=== PATIENT | male | born 1985 | race Caucasian/White ===

== ENCOUNTER 2023-08-14 16:49 | Emergency (ER) | payer BC, SELFPAY ==
[2023-08-14] VITALS (16 sets, daily range): BP systolic 141–149; BP diastolic 87–103; PULSE 66–85; RESP 14–25; TEMP 36.8; O2SAT 96–98; BMI 28.1
--- NOTE | 2023-08-14 18:00 | XR_ITS ---
The [address] [address] Patient Name: BUTCH BRICEÑO MRN: [id number] date: 1985 Sex: M Assigned Patient Location: ER Current Patient Location: ED.MAIN Accession/Order Number: [id number] Exam Date: 08/14/2023 18:20 Report Date: 08/14/2023 19:09 At the request of: PURA CROCKETT Procedure: XR chest 1V EXAMINATION: XR chest 1V 08/14/2023 4:08 PM PST HISTORY: CP TECHNIQUE: Single frontal view of the chest acquired. COMPARISONS: Chest x-ray 12/19/2022. FINDINGS: Lines/tubes/other: None. Heart and mediastinum: The heart and the mediastinum are within normal limits for technique. Bones: No acute osseous abnormality. Lungs: The lungs are clear. There is no evidence of pneumonia or pulmonary edema. Pleura: There is no significant pleural effusion or pneumothorax. Other: None. XR/XR chest 1V IMPRESSION: No acute cardiopulmonary abnormality. Electronically authenticated by: KYE CASIANO Date: 08/14/2023 19:09
--- NOTE | 2023-08-14 18:00 | ECG_ITS ---
The [facility] Test Date: 2023-08-14 Pat Name: BUTCH BRICEÑO Department: Room: - Gender: Male Psychiatric Technician: : 1985 Requested By: JAM FRAIRE Order Number: [id number] Reading MD: JAM FRAIRE Measurements Intervals [place] Rate: 73 P: 68 NV: 182 QRS: 63 QRSD: 84 T: 61 QT: 358 QTc: 383 Interpretive Statements 1100 Sinus rhythm 9110 normal ECG No previous ECG available for comparison Electronically Signed On 08-15-2023 4:58:58 EST by JAM FRAIRE
--- NOTE | 2023-08-14 18:02 | ED.CHESTPAI1 ---
HPI - Chest Pain General Chief Complaint: Chest Pain Stated Complaint: CP Time Seen by Provider: 08/14/23 17:18 Source: patient Mode of arrival: walk-in Limitations: no limitations History of Present Illness HPI narrative: 37-year-old male presents for a one year history of chest pain. He's had this worked up and has had a stress test that was negative. He is worried about pleurisy. He has it every day now for about three weeks and there is been no injury or fever or cough. This did not follow any respiratory infections. It's just to the left of midline in the lower sternal region. Related Data Previous Rx's Medication Instructions Recorded esomeprazole magnesium 40 mg 40 mg PO DAILY 28 days #28 caps 08/14/23 capsule,delayed release (Nexium) Allergies Allergy/AdvReac Type Severity Reaction Status Date / Time Penicillins Allergy Hives Verified 08/14/23 16:58 Review of Systems ROS Narrative A ten point review of systems is negative except as noted above. Exam Narrative Exam Narrative: Nurses note and vital signs reviewed and patient is not hypoxic. General: The patient appears well and in no apparent distress. Patient is resting comfortably on cart. Skin: Warm, dry, no pallor noted. There is no rash noted. Head: Normocephalic, atraumatic Eye: Normal conjunctiva, no drainage Ears, Nose, Mouth, and Throat: oral mucosa is moist. Nares patent. Cardiovascular: Regular Rate and Rhythm Respiratory: Patient is in no distress, no accessory muscle use, lungs are clear to auscultation, no wheezing, rales or rhonchi Back: non-tender GI: soft and nontender. No tenderness in the epigastric area. Musculoskeletal: The patient has no evidence of calf tenderness, no pitting edema, symmetrical pulses noted bilaterally Neurological: A&O, normal speech Psychiatric: Cooperative Constitutional Vital Signs, click to edit/add: Last Vital Signs Temp 98.3 F 08/14/23 16:58 Pulse 75 08/14/23 18:30 Resp 25 H 08/14/23 18:30 BP 149/87 H 08/14/23 16:58 Pulse Ox 96 08/14/23 17:00 O2 Del Method Room Air 08/14/23 16:58 Course Vital Signs Vital signs: Vital Signs Blood Pressure 149/87 H 08/14/23 16:57 Pulse Oximetry 97 12/18/23 16:57 Temperature 98.3 F 08/14/23 16:58 Pulse Rate 75 08/14/23 18:30 Respiratory Rate 25 H 08/14/23 18:30 Blood Pressure 149/87 H 08/14/23 16:58 Pulse Oximetry 96 08/14/23 17:00 Oxygen Delivery Method Room Air 08/14/23 16:58 MDM - Chest Pain MDM Narrative Medical decision making narrative: workup is negative. I've no clinical suspicion of acute coronary syndrome. I suspect that this may be GERD and he'll be prescribed Nexium. She's had this symptom for about a year. Treatment diagnosis and follow-up were discussed with the patient. Differential Diagnosis Differential diagnosis: Likely pneumothorax, atypical chest pain, costochondritis and chest pain Lab Data Attestation: I reviewed the patient's lab results. Labs: Lab Results 08/14/23 Range/Units 18:10 WBC 5.2 (4.0-11.0) 10^3/uL RBC 4.11 L (4.70-6.10) 10^6/uL Hgb 13.1 L (14.0-18.0) g/dL Hct 39.1 L (42.0-54.0) % MCV 95.1 H (80.0-94.0) fL MCH 31.9 (25.9-34.0) pg MCHC 33.5 (29.9-35.2) g/dL RDW 12.1 (11.0-15.0) % Plt Count 274 (150-450) 10^3/uL MPV 9.6 (9.5-13.5) fL Neut % (Auto) 50.0 (43.0-75.0) % Lymph % (Auto) 37.3 (20.5-60.0) % [place] % (Auto) 9.8 (1.7-12.0) % Eos % (Auto) 1.9 (0.9-7.0) % Baso % (Auto) 0.8 (0.2-2.0) % Neut # (Auto) 2.6 (1.4-6.5) 10^3/uL Lymph # (Auto) 1.9 (1.2-3.8) 10^3/uL [place] # (Auto) 0.5 (0.3-0.8) 10^3/uL Eos # (Auto) 0.1 (0.0-0.7) 10^3/uL Baso # (Auto) 0.0 (0.0-0.1) 10^3/uL Abs Immat Gran (auto) 0.01 (0.00-0.03) 10^3/uL Imm/Tot Granulo (auto) 0.2 (0.0-0.5) % Sodium 139 (136-145) mmol/L Potassium 4.0 (3.5-5.1) mmol/L Chloride 103 (98-107) mmol/L Carbon Dioxide 26.9 (21.0-32.0) mmol/L Anion Gap 13.1 BUN 19.0 H (7.0-18.0) mg/dL Creatinine 0.95 (0.70-1.30) mg/dL Est GFR ( Amer) >60 (>=60) Est GFR (Non-Af Amer) >60 (>=60) BUN/Creatinine Ratio 20.0 Glucose 117 H (74-106) mg/dL Calcium 9.4 (8.5-10.1) mg/dL Imaging Data Chest x-ray: My impression: chest x-ray my interpretation shows no acute findings ECG Data Attestation: I personally reviewed and interpreted this ECG as follows: (EKG on my dictation shows normal sinus rhythm with no acute changes and a rate of 73.) Discharge Plan Discharge Chief Complaint: Chest Pain Clinical Impression: Atypical chest pain Patient Disposition: Home, Self-Care Time of Disposition Decision: 18:46 Condition: Good Mode of Transportation: Private Vehicle Prescriptions / Home Meds: New esomeprazole magnesium [Nexium] 40 mg capsule,delayed release(DR/EC) 40 mg PO DAILY 28 Days Qty: 28 0RF Instructions: Chest Pain (DC) Stand Alone Forms: Portal Instructions Referrals: Sigifredo Flores MD [Primary Care Provider] - 1 week
[2023-08-14 18:14] LABS: Basophils Percent Auto 0.8 % (0.2-2.0); Eosinophils Absolute Auto 0.1 10^3/uL (0.0-0.7); Eosinophils Percent Auto 1.9 % (0.9-7.0); Hematocrit 39.1 % (42.0-54.0); Hemoglobin 13.1 g/dL (14.0-18.0); Immature Granulocytes Abs Auto 0.01 10^3/uL (0.00-0.03); Immature Granulocytes Pct Auto 0.2 % (0.0-0.5); Lymphocytes Absolute Auto 1.9 10^3/uL (1.2-3.8); Lymphocytes Percent Auto 37.3 % (20.5-60.0); Mean Corpuscular HGB Conc 33.5 g/dL (29.9-35.2); Mean Corpuscular Hemoglobin 31.9 pg (25.9-34.0); Mean Corpuscular Volume 95.1 fL (80.0-94.0); Mean Platelet Volume 9.6 fL (9.5-13.5); Monocytes Absolute Auto 0.5 10^3/uL (0.3-0.8); Monocytes Percent Auto 9.8 % (1.7-12.0); Neutrophils Absolute Auto 2.6 10^3/uL (1.4-6.5); Platelet Count 274 10^3/uL (150-450); Red Blood Count 4.11 10^6/uL (4.70-6.10); Red Cell Distribution Width 12.1 % (11.0-15.0); White Blood Count 5.2 10^3/uL (4.0-11.0)
[2023-08-14 18:23] LABS: Anion Gap 13.1; Calcium 9.4 mg/dL (8.5-10.1); Carbon Dioxide 26.9 mmol/L (21.0-32.0); Chloride 103 mmol/L (98-107); Estimated GFR (African America >60 (>=60); Estimated GFR (Non-African Ame >60 (>=60); Glucose 117 mg/dL (74-106); Sodium 139 mmol/L (136-145)
== END 2023-08-14 19:23 | disposition home or self-care (01) ==
PROVIDERS: Emergency Provider Emergency Medicine; PCP Family Medicine
DX: R07.89 Other chest pain (principal)
CPT/HCPCS: 36415; 71045; 80048; 85025; 93005; 99285

== ENCOUNTER 2023-09-21 09:29 | Outpatient (OUT) | payer BC, SELFPAY ==
--- NOTE | 2023-09-21 09:33 | US_ITS ---
The [address] [address] Patient Name: BUTCH BRICEÑO MRN: [id number] date: 1985 Sex: M Assigned Patient Location: US Current Patient Location: US Accession/Order Number: [id number] Exam Date: 09/21/2023 09:40 Report Date: 09/21/2023 10:21 At the request of: JAM FRAIRE Procedure: US soft tissue head and neck EXAM: US soft tissue head and neck HISTORY: Lymphadenitis I88.9 COMPARISON: None. TECHNIQUE: Grayscale and color ultrasound FINDINGS: Identified in the midline submandibular region is a mildly enlarged lymph node measuring 1.4 x 1.3 x 1.0 cm. This lymph node demonstrates atypical morphology with a thickened cortex and loss of fatty hilum. Identified in the right lateral neck corresponding to the patient's long is a focal lymph node measuring 1.2 x 1.0 x 0.8 cm. Abnormal morphology with thickened cortex and loss of fatty hilum Identified in the mid lateral right neck is a focal lymph node measuring 2.2 x 1.3 x 0.7 cm. Normal morphology with a cortex measuring up to 3 mm and fatty hypervascular hilum US/US soft tissue head and neck IMPRESSION: 3 focal lymph nodes, 2 lymph nodes demonstrate abnormal morphology, nonspecific of unknown etiology Electronically authenticated by: GARTH EVANS Date: 09/21/2023 10:21
--- OUTSIDE RECORDS SUMMARY | 2023-09-21 09:33 | XMS_ITS | CCD ---
Author Name Unknown Address [address] [place] [id number] Organization [facility] Care Team Providers Care Assembly Department Supervisor Name Role Phone DR JAM JOSHI Primary Care Unavailable PURA CROCKETT Admitting Unavailable PURA CROCKETT Attending Unavailable MARY KATE, DR NEGRITO Carrero Consulting Unavailable PURA CROCKETT Consulting Unavailable HOY ., DR POLK Admitting Unavailable HOY ., DR POLK Attending Unavailable HOY ., DR POLK Consulting Unavailable NEWCLAUDINE, JOSE C Consulting Unavailable YEE ., DR POLK Admitting Unavailable YEE ., DR POLK Attending Unavailable HOY ., DR POLK Consulting Unavailable MARY KATE, DR NEGRITO Carrero Consulting Unavailable Allergies Allergy Classification Reported Allergen(s) Allergy Type Date of Onset Reaction(s) Facility (1 source) Penicillins Drug allergy (disorder) 09-03-2015 [facility] Problems Problem Classification Problem Date Documented Da te Episodic/Chronic Nonspecific chest pain (7 sources) Chest pain, unspecified; Translations: [Other chest pain] Onset: 12-01-2022 Episodic Other aftercare (1 source) Other usp (current) drug therapy; Translations: [[employer] WORK[employer] CURRENT DRUG THERAPY] Onset: 12-20-2022 Episodic Results Test Name Value Interpretation Reference Range Facil ity CBC AUTO DIFFon 12-19-2022 BASO # 0.0 103/ul Normal 0.0-0.1 [facility] Comment on above: Performed By: #### C BC #### [facility] [address] [address] [address] Chery Cagle Basophils/100 WBC (Bld) 0.6 % Normal 0.2-2.0 [facility] Comment on above: Performed By: #### C BC #### [facility] [address] [address] [address] Chery Cagle EO # 0.1 103/ul Normal 0.0-0.7 [facility] Comment on above: Performed By: #### C BC #### [facility] [address] [place] [address] Dr. Chery Cagle Eosinophils/100 WBC (Bld) 1.3 % Normal 0.9-7.0 [facility] Comment on above: Performed By: #### C BC #### [facility] [address] [place] [address] Dr. Chery Cagle Erythrocyte distribution width (RBC) [Ratio] 12.4 % Normal 11.0-15.0 [facility] Comment on above: Performed By: #### C BC #### [facility] [address] [place] [address] Dr. Chery Cagle Hematocrit (Bld) [Volume fraction] 43.9 % Normal 42.0-54.0 [facility] Comment on above: Performed By: #### C BC #### [facility] [address] [place] [address] Dr. Chery Cagle Hemoglobin (Bld) [Mass/Vol] 15.3 g/dL Normal 14.0-18.0 [facility] Comment on above: Performed By: #### C BC #### [facility] [address] [place] [address] Dr. Chery Cagle IG # 0.02 10e3/ul Normal 0.00-0.03 [facility] Comment on above: Performed By: #### C BC #### [facility] [address] [place] [address] Dr. Chery Cagle IG % 0.3 % Normal 0.0-0.5 [facility] Comment on above: Performed By: #### C BC #### [facility] [address] [place] [address] Dr. Chery Cagle LYMPH # 1.9 103/ul Normal 1.2-3.8 [facility] Comment on above: Performed By: #### C BC #### [facility] [address] [place] [address] Dr. Chery Cagle Lymphocytes/100 WBC (Bld) 28.3 % Normal 20.5-60.0 [facility] Comment on above: Performed By: #### C BC #### [facility] [address] [place] [address] Dr. Chery Cagle MANUAL DIFF REQ NO Normal [facility] Comment on above: Performed By: #### C BC #### [facility] [address] [place] [address] Dr. Chery Calge MCH (RBC) [Entitic mass] 32.3 pg Normal 25.9-34.0 [facility] Comment on above: Performed By: #### C BC #### [facility] [address] [place] [address] Dr. Chery Cagle MCHC (RBC) [Mass/Vol] 34.9 g/dL Normal 29.9-35.2 [facility] Comment on above: Performed By: #### C BC #### [facility] [address] [place] [address] Dr. Chery Cagle MCV (RBC) [Entitic vol] 92.8 fL Normal 80.0-94.0 [facility] Comment on above: Performed By: #### C BC #### [facility] [address] [place] [address] Dr. Chery Cagle MONO # 0.5 103/ul Normal 0.3-0.8 [facility] Comment on above: Performed By: #### C BC #### [facility] [address] [place] [address] Dr. Chery Cagle Monocytes/100 WBC (Bld) 7.0 % Normal 1.7-12.0 [facility] Comment on above: Performed By: #### C BC #### [facility] [address] [place] [address] Dr. Chery Cagle NEUT # 4.2 103/ul Normal 1.4-6.5 [facility] Comment on above: Performed By: #### C BC #### [facility] [address] [place] [address] Dr. Chery Cagle Neutrophils/100 WBC (Bld) 62.5 % Normal 43.0-75.0 [facility] Comment on above: Performed By: #### C BC #### [facility] [address] [place] [address] Dr. Chery Cagle Platelet mean volume (Bld) [Entitic vol] 9.7 fL Normal 9.5-13.5 [facility] Comment on above: Performed By: #### C BC #### [facility] [address] [place] [address] Dr. Chery Cagle PLT 277 103/ul Normal 150-450 [facility] Comment on above: Performed By: #### C BC #### [facility] [address] [place] [address] Dr. Chery Cagle RBC 4.73 106/ul Normal 4.70-6.10 [facility] Comment on above: Performed By: #### C BC #### [facility] [address] [place] [address] Dr. Chery Cagle WBC 6.7 103/ul Normal 4.0-11.0 [facility] Comment on above: Performed By: #### C BC #### [facility] [address] [place] [address] Dr. Chery Cagle PROF CHEM 8 (BAS METB)on Anion gap [Moles/Vol] 12.2 mmol/L Normal [facility] Comment on above: Performed By: #### B KARTHIKEYAN, HSTROPN #### [facility] [address] [place] [address] Dr. Chery Cagle Calcium [Mass/Vol] 8.9 mg/dL Normal 8.5-10.1 [facility] Comment on above: Performed By: #### B MP, HSTROPN #### [facility] [address] [place] [address] Dr. Chery Cagle Chloride [Moles/Vol] 100 mmol/L Normal 98-107 [facility] Comment on above: Performed By: #### B MP, HSTROPN #### [facility] [address] [place] [address] Dr. Chery Cagle CO2 [Moles/Vol] 26.8 mmol/L Normal 21.0-32.0 [facility] Comment on above: Performed By: #### B KARTHIKEYAN HSTROPN #### [facility] [address] [address] [address] Chery Cagle Creatinine [Mass/Vol] 1.05 mg/dL Normal 0.70-1.30 [facility] Comment on above: Performed By: #### B KARTHIKEYAN, HSTROPN #### [facility] [address] [address] [address] Chery Cagle EGFR-AF FILIPINO >60 Normal >=60 [facility] Comment on above: Performed By: #### B KARTHIKEYAN HSTROPN #### [facility] [address] [address] [address] Chery Cagle EGFR-NON AF FILIPINO >60 Normal >=60 [facility] Comment on above: Performed By: #### B KARTHIKEYAN HSTROPN #### [facility] [address] [address] [address] Chery Cagle Glucose [Mass/Vol] 101 mg/dL Normal 74-106 [facility] Comment on above: Performed By: #### B KARTHIKEYAN HSTROPN #### [facility] [address] [address] [address] Chery Cagle Potassium [Moles/Vol] 4.0 mmol/L Normal 3.5-5.1 [facility] Comment on above: Performed By: #### B KARTHIKEYAN HSTROPN #### [facility] [address] [address] [address] Chery Cagle Sodium [Moles/Vol] 135 mmol/L Critically low 136-145 [facility] Comment on above: Performed By: #### B KARTHIKEYAN, HSTROPN #### [facility] [address] [place] [address] Dr. Chery Cagle Urea nitrogen [Mass/Vol] 13.0 mg/dL Normal 7.0-18.0 [facility] Comment on above: Performed By: #### B KARTHIKEYAN, HSTROPN #### [facility] [address] [address] [address] Chery Cagle Urea nitrogen/Creatinine [Mass ratio] 12.4 mg/mg Normal [facility] Comment on above: Performed By: #### B KARTHIKEYAN, HSTROPN #### [facility] [address] [address] [address] Chrey Cagle TROPONIN, HIGH SENSITIVITYon 12-19-2022 HSTROP 4.6 pg/mL Normal 4.0-76.1 [facility] Comment on above: Result Comment: CUT- OFF POINTS HAVE BEEN ESTABLISHED BASED ON THE FOURTH UNIVERSAL DEFINITIONS OF MYOCARDIAL INFARCTION. THE UPPER REFERENCE LIMIT (URL) OF TROPONIN, DEFINED THE 99TH PERCENTILE OF cTnI DISTRIBUTION IN A REFERENCE POPULATION, HAS BEEN CONFIRMED THE DECISION THRESHOLD FOR ID DIAGNOSIS. Performed By: #### B KARTHIKEYAN, HSTROPN #### [facility] [address] [place] [address] Dr. Chery Cagle XR CHEST 1 Von 12-19-2022 XR CHEST 1 V EXAMINATION: XR CHES T 1 V HISTORY: CHEST PAIN, UNSPECIFIED , shortness of breath COMPARISON: XR chest 11/01/2022 FINDINGS: LUNGS: No significant pulmonary parenchymal abnormalities. VASCULATURE: No increased pulmonary vasculature. PLEURA: No pneumothorax, effusion, or pleural thickening. CARDIAC: No cardiomegaly or cardiac silhouette abnormality. MEDIASTINUM: No visible mass or adenopathy. BONES: No fracture or visible bone lesion. OTHER: Negative. IMPRESSION: 1. No acute cardiopulmonary process. Stable chest. Electronically authenticated by: NEGRITO RODRIGUEZ Date: 2022-12-19 11:30 Normal [facility] NM STRESS/REST MULTIon 12-01 NM STRESS/REST MULTI Patient: MANUELA BRICEÑO Exam Date: 12/01/2022 : 1985 Gender:M Ordering : DR JAM FRAIRE . Admission #: [id number] Family : Order #: [id number] CLICK HERE TO VIEW EXAM RADIOLOGY REPORT PROCEDURE: RADIONUCLIDE IMAGING STRESS/REST MULTI COMPARISON: None. INDICATIONS: Chest pain TECHNIQUE: Exam Description: Stress/Rest one day protocol gated SPECT Rest Imagin.9 mCi Tc-99m Cardiolite IV on 12/01/2022 Stress Imaging 30.2 mCi Tc-99m Cardiolite IV on 12/01/2022 Exercise Protocol: Ryan Heart Rate (bpm): Rest: 62 Max: 160 PMHR: 86 Blood Pressure: Rest: 122/84 Max: 220/94 Exercise Time: Minutes: 10 Seconds: 30 Stage Reached: Stage: 4 Mets 12.1 Symptoms: Rest and peak stress ECG findings were abnormal and the exercise portion of the study was Non-diagnostic per attending physician Dr. Bah due to EKG changes. For more details please see separate cardiac stress test report. FINDINGS: QUALITY OF STUDY: Excellent. PERFUSION DEFECT: None. LOCATION: N/A SIZE: N/A. SEVERITY: N/A. TYPE: N/A. WALL MOTION: Normal. LV SIZE: Normal. 89 mL. TID / TCD: None; 0.9 LVEF: Normal. Calculated EF 68%. SUMMARY: Myocardial perfusion imaging study is NORMAL. CONCLUSION: 1. Normal nuclear medicine myocardial perfusion scan. Dictated by: Negrito Rodriguez M.D. on 12/01/2022 at 15:12 Approved by: Negrito Rodriguez M.D. on 12/01/2022 at 15:13 Normal [facility] XR CHEST 2 Von 11-01-2022 XR CHEST 2 V EXAMINATION: XR CHES T 2 V, 11/01/2022 10:49 AM EST HISTORY: Chest pain COMPARISON: 02/18/2019 TECHNIQUE: Chest x-ray: Two views. FINDINGS: No focal consolidations or pleural effusions. Cardiomediastinal silhouette is unremarkable. Visualized osseous structures are unremarkable. IMPRESSION: No acute disease. Electronically authenticated by: JOSE C MALLORY Date: 2022-11-01 12:05 Normal [facility] Encounters Encounter Date Encounter Type Care Provider Facility Start: 12-19-2022 End: 12-19-[address] JAM FRAIRE . Facility[facility] Start: 12-01-2022 End: 12-02-[address] JAM FRAIRE . Facility[facility] Start: 11-01-2022 End: 11-02-[address] JAM FRAIRE . Facility[facility] Payers Date Payer Category Payer Unknown [id number] 1985 Unknown [id number] 1985 Unknown [id number] [id number] 1958 Unknown [id number] Summary Purpose Family History No Family History Records Found Advance Directives No Advanced Directives Records Found Additional Source Comments (unrecognized sect ion and content) No Status Records Found INFORMATION SOURCE (unrecogn ized section and content) DATE CREATED AUTHOR 12/21/2022 [facility] FOR RECORDS PERTAINING TO PATIENTS WHO ARE OR HAVE BEEN ENROLLED IN A CHEMICAL DEPENDENCY/SUBSTANCEABUSE PROGRAM, SOME INFORMATION MAY BE OMITTED. This clinical summary was aggregated from multiple sources. Caution should be exercised in using it in the provision of clinical care. This summary normalizes information from multiple sources, and as a consequence, information in this document may materially change the coding, format and clinical context of patient data. In addition, data may be omitted in some cases. CLINICAL DECISIONS SHOULD BE BASED ON THE PRIMARY CLINICAL RECORDS. [facility] [employer] [facility]. provides no warranty or guarantee of the accuracy or completeness of information in this document.
[2023-09-21 10:30] LABS: Basophils Absolute Auto 0.1 10^3/uL (0.0-0.1); Basophils Percent Auto 0.6 % (0.2-2.0); Eosinophils Absolute Auto 0.2 10^3/uL (0.0-0.7); Eosinophils Percent Auto 2.3 % (0.9-7.0); Hematocrit 39.7 % (42.0-54.0); Hemoglobin 13.7 g/dL (14.0-18.0); Immature Granulocytes Abs Auto 0.02 10^3/uL (0.00-0.03); Immature Granulocytes Pct Auto 0.2 % (0.0-0.5); Lymphocytes Absolute Auto 3.1 10^3/uL (1.2-3.8); Lymphocytes Percent Auto 37.2 % (20.5-60.0); Mean Corpuscular HGB Conc 34.5 g/dL (29.9-35.2); Mean Corpuscular Volume 92.8 fL (80.0-94.0); Mean Platelet Volume 9.8 fL (9.5-13.5); Monocytes Absolute Auto 0.5 10^3/uL (0.3-0.8); Monocytes Percent Auto 5.5 % (1.7-12.0); Neutrophils Absolute Auto 4.4 10^3/uL (1.4-6.5); Neutrophils Percent Auto 54.2 % (43.0-75.0); Platelet Count 326 10^3/uL (150-450); Red Blood Count 4.28 10^6/uL (4.70-6.10); Red Cell Distribution Width 12.2 % (11.0-15.0); White Blood Count 8.2 10^3/uL (4.0-11.0)
[2023-09-21 10:36] LABS: Erythrocyte Sedimentation Rate 14 mm/hr (<=15)
[2023-09-21 11:03] LABS: Albumin Globulin Ratio 1.1; Albumin Level 4.3 g/dL (3.4-5.0); Alkaline Phosphatase 117 U/L (46-116); Anion Gap 10.9; BUN Creatinine Ratio 18.3; Bilirubin Total 0.4 mg/dL (0.2-1.0); Calcium 9.3 mg/dL (8.5-10.1); Carbon Dioxide 30.7 mmol/L (21.0-32.0); Chloride 101 mmol/L (98-107); Estimated GFR (African America >60 (>=60); Estimated GFR (Non-African Ame >60 (>=60); Globulin 3.9 g/dL; Glucose 105 mg/dL (74-106); Potassium 4.6 mmol/L (3.5-5.1); Sodium 138 mmol/L (136-145); Total Protein 8.2 g/dL (6.4-8.2)
[2023-09-21 11:30] LABS: Alanine Aminotransferase 48 U/L (16-63); Aspartate Amino Transferase 25 U/L (15-37)
[2023-09-21 11:31] LABS: C Reactive Protein <0.50 mg/dL (<=0.50)
[2023-09-22 04:08] LABS: Antistreptolysin O Ab 326.8 IU/mL (0.0-200.0)
== END 2023-09-21 09:30 | disposition home or self-care (01) ==
LOC: US 09:29
PROVIDERS: PCP Family Medicine; Visit Provider Family Medicine
DX: I88.9 Nonspecific lymphadenitis, unspecified (principal)
CPT/HCPCS: 36415; 76536; 80053; 85025; 85652; 86060; 86140

== ENCOUNTER 2023-10-18 11:34 | Outpatient (OUT) | payer BC, SELFPAY ==
--- OUTSIDE RECORDS SUMMARY | 2023-10-18 11:56 | XMS_ITS | CCD ---
Author Name Unknown Address [address] [place] [id number] Organization [facility] Care Team Providers Care Wage And Salary Administrator Name Role Phone DR JAM JOSHI Primary [...] source) Penicillins Drug allergy (disorder) 09-03-2015 [facility] Repository Problems Problem Classification Problem Date Documented Da te Episodic/Chronic Nonspecific chest pain (7 sources) Chest pain, unspecified; Translations: [Other chest pain] Onset: 12-01-2022 Episodic Other aftercare (1 source) Other care home (current) drug therapy; Translations: [OTH SNF CURRENT DRUG THERAPY] Onset: 12-20-2022 Episodic Results Test Name Value Interpretation Reference Range Facil ity CBC AUTO DIFFon 12-19-2022 BASO # 0.0 103/ul Normal 0.0-0.1 [facility] Comment on above: Performed By: #### C BC #### [facility] [address] [address] [address] Chery Cagle Basophils/100 WBC (Bld) 0.6 % Normal 0.2-2.0 [facility] Comment on above: Performed By: #### C BC #### [facility] [address] [address] [address] Chery Cagle EO # 0.1 103/ul Normal 0.0-0.7 [facility] Comment on above: Performed By: #### C BC #### [facility] [address] [place] [address] Dr. Chery Cagle Eosinophils/100 WBC (Bld) 1.3 % Normal 0.9-7.0 [facility] Comment on above: Performed By: #### C BC #### [facility] [address] [place] [address] Dr. Chery Cagle Erythrocyte distribution width (RBC) [Ratio] 12.4 % Normal 11.0-15.0 [facility] Comment on above: Performed By: #### C BC #### [facility] [address] [place] [address] Dr. Chery Cagle Hematocrit (Bld) [Volume fraction] 43.9 % Normal 42.0-54.0 [facility] Comment on above: Performed By: #### C BC #### [facility] [address] [place] [address] Dr. Chery Cagle Hemoglobin (Bld) [Mass/Vol] 15.3 g/dL Normal 14.0-18.0 [facility] Comment on above: Performed By: #### C BC #### [facility] [address] [place] [address] Dr. Chery Cagle IG # 0.02 10e3/ul Normal 0.00-0.03 [facility] Comment on above: Performed By: #### C BC #### [facility] [address] [place] [address] Dr. Chery Cagle IG % 0.3 % Normal 0.0-0.5 [facility] Comment on above: Performed By: #### C BC #### [facility] [address] [place] [address] Dr. Chery Cagle LYMPH # 1.9 103/ul Normal 1.2-3.8 [facility] Comment on above: Performed By: #### C BC #### [facility] [address] [place] [address] Dr. Chery Cagle Lymphocytes/100 WBC (Bld) 28.3 % Normal 20.5-60.0 [facility] Comment on above: Performed By: #### C BC #### [facility] [address] [place] [address] Dr. Chery Cagle MANUAL DIFF REQ NO Normal [facility] Comment on above: Performed By: #### C BC #### [facility] [address] [place] [address] Dr. Chery Cagle MCH (RBC) [Entitic mass] 32.3 pg Normal 25.9-34.0 [facility] Comment on above: Performed By: #### C BC #### [facility] [address] [place] [address] Dr. Chery Cagle MCHC (RBC) [Mass/Vol] 34.9 g/dL Normal 29.9-35.2 [facility] Comment on above: Performed By: #### C BC #### [facility] [address] [place] [address] Dr. Chery Cagle MCV (RBC) [Entitic vol] 92.8 fL Normal 80.0-94.0 [facility] Comment on above: Performed By: #### C BC #### [facility] [address] [place] [address] Dr. Chery Cagle MONO # 0.5 103/ul Normal 0.3-0.8 [facility] Comment on above: Performed By: #### C BC #### [facility] [address] [place] [address] Dr. Chery Cagle Monocytes/100 WBC (Bld) 7.0 % Normal 1.7-12.0 [facility] Comment on above: Performed By: #### C BC #### [facility] [address] [place] [address] Dr. Chery Cagle NEUT # 4.2 103/ul Normal 1.4-6.5 [facility] Comment on above: Performed By: #### C BC #### [facility] [address] [place] [address] Dr. Chery Cagle Neutrophils/100 WBC (Bld) 62.5 % Normal 43.0-75.0 [facility] Comment on above: Performed By: #### C BC #### [facility] [address] [place] [address] Dr. Chery Cagle Platelet mean volume (Bld) [Entitic vol] 9.7 fL Normal 9.5-13.5 [facility] Comment on above: Performed By: #### C BC #### [facility] [address] [place] [address] Dr. Chery Cagle PLT 277 103/ul Normal 150-450 [facility] Comment on above: Performed By: #### C BC #### [facility] [address] [place] [address] Dr. Chery Cagle RBC 4.73 106/ul Normal 4.70-6.10 [facility] Comment on above: Performed By: #### C BC #### [facility] [address] [place] [address] Dr. Chery Cagle WBC 6.7 103/ul Normal 4.0-11.0 [facility] Comment on above: Performed By: #### C BC #### [facility] [address] [place] [address] Dr. Chery Cagle PROF CHEM 8 (BAS METB)on Anion gap [Moles/Vol] 12.2 mmol/L Normal [facility] Comment on above: Performed By: #### B KARTHIKEYAN, HSTROPN #### [facility] [address] [place] [address] Dr. Chery Cagle Calcium [Mass/Vol] 8.9 mg/dL Normal 8.5-10.1 [facility] Comment on above: Performed By: #### B MP, HSTROPN #### [facility] [address] [place] [address] Dr. Chery Cagle Chloride [Moles/Vol] 100 mmol/L Normal 98-107 [facility] Comment on above: Performed By: #### B MP, HSTROPN #### [facility] [address] [place] [address] Dr. Chery Cagle CO2 [Moles/Vol] 26.8 mmol/L Normal 21.0-32.0 [facility] Comment on above: Performed By: #### B KARTHIKEYAN HSTROPN #### [facility] [address] [address] [address] Chery Cagle Creatinine [Mass/Vol] 1.05 mg/dL Normal 0.70-1.30 [facility] Comment on above: Performed By: #### B KARTHIKEYAN, HSTROPN #### [facility] [address] [address] [address] Chery Cagle EGFR-AF SLOVAK >60 Normal >=60 [facility] Comment on above: Performed By: #### B KARTHIKEYAN HSTROPN #### [facility] [address] [address] [address] Chery Cagle EGFR-NON AF [place] >60 Normal >=60 [facility] Comment on above: Performed By: #### B KARTHIKEYAN HSTROPN #### [facility] [address] [address] [address] Chery Cagle Glucose [Mass/Vol] 101 mg/dL Normal 74-106 [facility] Comment on above: Performed By: #### B KARTHIKEYAN HSTROPN #### [facility] [address] [address] [address] Chery Cagle Potassium [Moles/Vol] 4.0 mmol/L Normal 3.5-5.1 [facility] Comment on above: Performed By: #### B KARTHIKEYAN HSTROPN #### [facility] [address] [address] [address] Chery Cagle Sodium [Moles/Vol] 135 mmol/L Critically low 136-[address] [facility] Comment on above: Performed By: #### B KARTHIKEYAN, HSTROPN #### [facility] [address] [place] [address] Dr. Chery Cagle Urea nitrogen [Mass/Vol] 13.0 mg/dL Normal 7.0-18.0 [facility] Comment on above: Performed By: #### B KARTHIKEYAN, HSTROPN #### [facility] [address] [address] [address] Chery Cagle Urea nitrogen/Creatinine [Mass ratio] 12.4 mg/mg Normal [facility] Comment on above: Performed By: #### B KARTHIKEYAN, HSTROPN #### [facility] [address] [address] [address] Chery Cagle TROPONIN, HIGH SENSITIVITYon 12-19-2022 HSTROP 4.6 pg/mL Normal 4.0-76.1 [facility] Comment on above: Result Comment: CUT- OFF POINTS HAVE BEEN ESTABLISHED BASED ON THE FOURTH UNIVERSAL DEFINITIONS OF MYOCARDIAL INFARCTION. THE UPPER REFERENCE LIMIT (URL) OF TROPONIN, DEFINED THE 99TH PERCENTILE OF cTnI DISTRIBUTION IN A REFERENCE POPULATION, HAS BEEN CONFIRMED THE DECISION THRESHOLD FOR [place] DIAGNOSIS. Performed By: #### B KARTHIKEYAN, HSTROPN #### [facility] [address] [place] [address] Dr. Chery Cagle XR CHEST 1 Von [...] by: NEGRITO RODRIGUEZ Date: 2022-12-19 11:30 Normal [facility] NM STRESS/REST MULTIon 12-01 NM STRESS/REST MULTI Patient: MANUELA BRICEÑO Exam Date: 12/01/2022 : 1985 Gender:M Ordering : DR JAM FRAIRE . Admission #: [id number] Family : Order #: [id number] CLICK HERE TO VIEW EXAM RADIOLOGY REPORT [...] Rodriguez M.D. on 12/01/2022 at 15:13 Normal [facility] XR CHEST 2 Von 11-01-2022 XR CHEST 2 V EXAMINATION: XR CHES T 2 V, 11/01/2022 10:49 AM EST HISTORY: Chest pain COMPARISON: 02/18/2019 TECHNIQUE: Chest x-ray: Two views. FINDINGS: No focal consolidations or pleural effusions. Cardiomediastinal silhouette is unremarkable. Visualized osseous structures are unremarkable. IMPRESSION: No acute disease. Electronically authenticated by: JOSE C MALLORY Date: 2022-11-01 12:05 Normal [facility] Encounters Encounter Date Encounter Type Care Provider Facility Start: 12-19-2022 End: 12-19-[address] JAM FRAIRE . Facility[facility] Start: 12-01-2022 End: 12-02-[address] JAM FRAIRE . Facility[facility] Start: 11-01-2022 End: 11-02-[address] JAM FRAIRE . Facility[facility] Payers Date Payer Category Payer Unknown [id number] 1985 Unknown [id number] 1985 Unknown [id number] [id number] 1958 Unknown [id number] Summary Purpose Family History No Family History Records Found Advance Directives No Advanced Directives Records Found Additional Source Comments (unrecognized sect ion and content) No Status Records Found INFORMATION SOURCE (unrecogn ized section and content) DATE CREATED AUTHOR 12/21/2022 [facility] FOR RECORDS PERTAINING TO PATIENTS WHO [...] BE BASED ON THE PRIMARY CLINICAL RECORDS. [facility] [employer] [facility]. provides no warranty or guarantee of the accuracy or completeness of information in this document.
[2023-10-18 12:22] LABS: Basophils Percent Auto 0.5 % (0.2-2.0); Eosinophils Absolute Auto 0.1 10^3/uL (0.0-0.7); Eosinophils Percent Auto 1.5 % (0.9-7.0); Hematocrit 42.9 % (42.0-54.0); Hemoglobin 14.4 g/dL (14.0-18.0); Immature Granulocytes Abs Auto 0.01 10^3/uL (0.00-0.03); Immature Granulocytes Pct Auto 0.1 % (0.0-0.5); Lymphocytes Absolute Auto 2.7 10^3/uL (1.2-3.8); Lymphocytes Percent Auto 35.2 % (20.5-60.0); Mean Corpuscular HGB Conc 33.6 g/dL (29.9-35.2); Mean Corpuscular Hemoglobin 31.4 pg (25.9-34.0); Mean Corpuscular Volume 93.5 fL (80.0-94.0); Mean Platelet Volume 9.9 fL (9.5-13.5); Monocytes Absolute Auto 0.5 10^3/uL (0.3-0.8); Monocytes Percent Auto 6.7 % (1.7-12.0); Neutrophils Absolute Auto 4.3 10^3/uL (1.4-6.5); Platelet Count 311 10^3/uL (150-450); Red Blood Count 4.59 10^6/uL (4.70-6.10); White Blood Count 7.8 10^3/uL (4.0-11.0)
[2023-10-18 12:34] LABS: Alanine Aminotransferase 30 U/L (16-63); Alkaline Phosphatase 95 U/L (46-116); Anion Gap 12.3; Aspartate Amino Transferase 18 U/L (15-37); Bilirubin Total 0.5 mg/dL (0.2-1.0); Calcium 9.5 mg/dL (8.5-10.1); Carbon Dioxide 30.4 mmol/L (21.0-32.0); Chloride 102 mmol/L (98-107); Estimated GFR (African America >60 (>=60); Estimated GFR (Non-African Ame >60 (>=60); Glucose 102 mg/dL (74-106); Potassium 4.7 mmol/L (3.5-5.1); Sodium 140 mmol/L (136-145); Troponin I High Sensitivity <4.0 pg/mL (4.0-76.1)
== END 2023-10-18 11:35 | disposition home or self-care (01) ==
LOC: LAB 11:36
PROVIDERS: PCP Family Medicine; Visit Provider Family Medicine
DX: R07.9 Chest pain, unspecified (principal); I50.9 Heart failure, unspecified; I11.0 Hypertensive heart disease with heart failure
CPT/HCPCS: 36415; 80053; 83880; 84484; 85025